=== PATIENT | female | born 1940 | race Hispanic/Latino ===

== ENCOUNTER 2019-01-29 11:46 | Emergency (ER) | payer OTHER, MEDICARE ==
[~2019-01-29 11:46] MED LIST: ATOR40TA71 PO; CLOP75TA32 PO; FERR324T10 PO; HYDR-2132 PO; INSLAN SQ; INSU100V SQ; LEVO50 PO; METO25TA6 PO; NITR0.4T SL; OMEP20TA25 PO
[2019-01-29] MEDS ORDERED: KETOROLAC TROMETHAMINE 30MG/ML ONE (12:15)
[2019-01-29] MEDS ORDERED: MORPHINE SULFATE 2 MG/ML 1ML SYG ONE (12:15)
[2019-01-29] MEDS ORDERED: ONDANSETRON HCL 4 MG/2 ML VIAL ONE (12:15)
== END 2019-01-29 14:22 | disposition home or self-care (01) ==
LOC: EDH 11:46
DX: S20.212A Contusion of left front wall of thorax, initial encounter (principal); I10 Essential (primary) hypertension; E11.9 Type 2 diabetes mellitus without complications; E78.00 Pure hypercholesterolemia, unspecified; W18.39XA Other fall on same level, initial encounter; Y93.89 Activity, other specified; Y92.89 Other specified places as the place of occurrence of the external cause; Y99.8 Other external cause status
CPT/HCPCS: 71250; 96374; 96375; 99284; J1885; J2405

== ENCOUNTER 2019-02-21 16:30 | Inpatient (IN) | payer OTHER, MEDICARE ==
[2019-02-21] VITALS (22 sets, daily range): BP systolic 115–176; BP diastolic 41–75
[~2019-02-21] VITALS: Ht 165.1 cm; Wt 78.3 kg
[2019-02-21] MEDS ORDERED: DIGOXIN 250 MCG/ML 2ML AMP ONE (16:46)
[2019-02-21] MEDS ORDERED: ASPIRIN 325 MG TABLET ONE (16:52)
[2019-02-21] MEDS ORDERED: METOPROLOL TARTRATE 1 MG/ML 5ML VIAL IV ONE ×5 (16:57→17:41)
[2019-02-21 16:59] LABS: BASOPHILS % (AUTO) 0.4 % (0.0-5.0); EOSINOPHILS % (AUTO) 1.9 % (0.0-8.0); HEMATOCRIT 37.9 % (36-48); LYMPHOCYTES % (AUTO) 28.1 % (21.0-51.0); MEAN CORPUSCULAR HEMOGLOBIN 30.4 pg (27.0-33.0); MEAN CORPUSCULAR HGB CONC 33.6 g/dL (32.0-36.0); MEAN CORPUSCULAR VOLUME 90.3 fL (79-99); MONOCYTES % (AUTO) 8.4 % (3.0-13.0); NEUTROPHILS % (AUTO) 61.2 % (40.0-77.0); PLATELET COUNT (AUTO) 167 K/uL (130-400); RED BLOOD CELL COUNT(AUTO) 4.19 MIL/uL (4.00-5.50); RED CELL DISTRIBUTION WIDTH 14.5 % (11.0-15.5); WHITE BLOOD COUNT (AUTO) 6.1 K/uL (4.8-10.8)
[2019-02-21] MEDS ORDERED: SODIUM BICARB 50MEQ 50ML VIAL ONE (17:10)
[2019-02-21] MEDS ORDERED: IOHEXOL 350 MG/ML 100ML INFUS..BTL IV ONE (17:10)
[2019-02-21] MEDS ORDERED: IOHEXOL-350 50ML VIAL IV ONE (17:10)
[2019-02-21] MEDS ORDERED: NITROGLYCERIN 5 MG/ML 10 ML VIAL IV ONE (17:10)
[2019-02-21] MEDS ORDERED: LIDOCAINE HCL 2% 20ML ONE (17:10)
[2019-02-21] MEDS ORDERED: HEPARIN SODIUM 1000UNIT/ML 10ML VIAL ONE (17:10)
[2019-02-21 17:13] LABS: INR 0.94 (0.85-1.15); PROTHROMBIN TIME 9.9 SEC (9.6-11.6)
[2019-02-21 17:15] LABS: CREATININE 1.1 mg/dL (0.5-1.5); POTASSIUM 3.6 mmol/L (3.5-5.1)
[2019-02-21 17:21] LABS: ALBUMIN 3.4 g/dL (3.5-5.0); TOTAL PROTEIN, SERUM 7.1 g/dL (6.0-8.3)
[2019-02-21 17:42] LABS: BILIRUBIN,TOTAL 0.2 mg/dL (0.2-1.0)
[2019-02-21] MEDS ORDERED: ATROPINE SULFATE 0.1 MG/ML 10 ML SYG IVP ONE ×2 (17:56→18:02)
[2019-02-21] MEDS ORDERED: HEPARIN 25000 UNITS/250 ML D5W 250 ML IV ONE (18:45)
[2019-02-21] MEDS ORDERED: SODIUM CHLORIDE 0.9% 1000ML 1,000 ML IV SCH (18:48)
[2019-02-21] MEDS ORDERED: DILTIAZEM 125MG+100 ML NS 125 ML IV PRN (19:00)
[2019-02-21] MEDS ORDERED: GLUCAGON 1MG KIT 1 MG ML IM PRN (19:00)
[2019-02-21] MEDS ORDERED: ALPRAZOLAM 0.5 MG TABLET PO PRN (19:00)
[2019-02-21] MEDS ORDERED: AMIODARONE HCL 150 MG in DEXTROSE 5%-WATER 100 ML IV SCH (19:00)
[2019-02-21] MEDS ORDERED: NOREPINEPHRINE 4MG/NS 250ML 250 ML IV PRN (19:00)
[2019-02-21] MEDS ORDERED: PHARMACY COMMUNICATION MISC SCH ×2 (19:00)
[2019-02-21] MEDS ORDERED: DEXTROSE 50%-WATER 50 ML DISP.SYRIN IV PRN (19:00)
[2019-02-21] MEDS ORDERED: AMIODARONE HCL 300 MG in DEXTROSE 5%-WATER 100 ML IV SCH (19:45)
[2019-02-21] MEDS: METOPROLOL TARTRATE 25 MG TAB PO SCH (20:40)
--- NOTE | 2019-02-21 20:41 | NUR ---
CONSULT REPEAT CHIEF FOR [facility] CALLED AND NOTIFIED OF NEW CONSULT. UPDATED ON PATIENT CONDITION. SPOKE WITH CARRIE HARRIS NP. NO NEW ORDERS.
[2019-02-21] MEDS: NITROGLYCERIN 50 MG/D5% WATER 1 BOT IV PRN (20:48)
[2019-02-21] MEDS: HEPARIN 25000 UNITS/250 ML D5W 250 ML IV SCH (20:58)
[2019-02-21] MEDS: ATORVASTATIN CALCIUM 40 MG TABLET PO SCH (20:59)
[2019-02-21] MEDS: AMIODARONE HCL 200 MG TABLET PO SCH (20:59)
[2019-02-21] MEDS: INSULIN HUMULIN R 100 UNIT/ML 3ML SQ SCH (21:00)
[2019-02-21] MEDS: AMIODARONE HCL 700 MG in DEXTROSE 5%-WATER 500 ML IV SCH (21:26)
[2019-02-21 22:12] LABS: TROPONIN I 10.7 ng/mL (0.00-0.06)
--- NOTE | 2019-02-21 22:43 | NUR ---
STATUS DR DARLING CALLED TO CHECK PATIENT STATUS. UPDATED ON PATIENT CONDITION. CURRENT VITALS SIGNS, BRADYCARDIA AND DRIP RATES. ORDER TO USE ATROPINE IF NEEDED FOR HEART RATE LESS THAN 40
[2019-02-21] MEDS ORDERED: ATROPINE SULFATE 0.1 MG/ML 10 ML SYG IVP PRN (22:45)
[2019-02-22] VITALS (60 sets, daily range): BP systolic 96–182; BP diastolic 36–78
[2019-02-22 01:44] LABS: INR 1.06 (0.85-1.15); PROTHROMBIN TIME 11.1 SEC (9.6-11.6)
[2019-02-22 02:32] LABS: BASOPHILS % (AUTO) 0.6 % (0.0-5.0); EOSINOPHILS % (AUTO) 1.4 % (0.0-8.0); HEMATOCRIT 36.3 % (36-48); LYMPHOCYTES % (AUTO) 24.6 % (21.0-51.0); MEAN CORPUSCULAR HEMOGLOBIN 30.3 pg (27.0-33.0); MEAN CORPUSCULAR HGB CONC 33.4 g/dL (32.0-36.0); MEAN CORPUSCULAR VOLUME 90.9 fL (79-99); MONOCYTES % (AUTO) 7.8 % (3.0-13.0); NEUTROPHILS % (AUTO) 65.6 % (40.0-77.0); NUCLEATED RED BLOOD CELLS 0.1 % (0.0-0.19); PLATELET COUNT (AUTO) 167 K/uL (130-400); RED BLOOD CELL COUNT(AUTO) 3.99 MIL/uL (4.00-5.50); RED CELL DISTRIBUTION WIDTH 14.5 % (11.0-15.5); WHITE BLOOD COUNT (AUTO) 6.7 K/uL (4.8-10.8)
[2019-02-22 03:02] LABS: CREATININE 0.9 mg/dL (0.5-1.5); POTASSIUM 4.6 mmol/L (3.5-5.1)
[2019-02-22 03:03] LABS: PARTIAL THROMBOPLASTIN TIME > 120.0 SEC (26.3-35.5)
[2019-02-22 03:09] LABS: TROPONIN I 26.36 ng/mL (0.00-0.06)
[2019-02-22] MEDS: ONDANSETRON HCL 4 MG/2 ML VIAL IVP PRN (04:52)
[2019-02-22] MEDS: MORPHINE SULFATE 2 MG/ML 1ML SYG IV PRN ×2 (04:53→19:13)
[2019-02-22] MEDS: LEVOTHYROXINE 50 MCG TABLET PO SCH (05:34)
[2019-02-22] MEDS: INSULIN HUMULIN R 100 UNIT/ML 3ML SQ SCH ×4 (06:27→20:49)
[2019-02-22 08:14] LABS: INR 1.06 (0.85-1.15); PROTHROMBIN TIME 11.1 SEC (9.6-11.6)
[2019-02-22 08:42] LABS: PARTIAL THROMBOPLASTIN TIME > 120.0 SEC (26.3-35.5)
[2019-02-22] MEDS ORDERED: METO25TA6 PO (08:50)
[2019-02-22] MEDS ORDERED: ACET-66 PO (08:50)
[2019-02-22] MEDS ORDERED: DICL2100G TP (08:50)
[2019-02-22] MEDS ORDERED: INSU100V SQ (08:50)
[2019-02-22] MEDS ORDERED: INSLAN SQ (08:50)
[2019-02-22] MEDS ORDERED: EZET10TA48 PO (08:50)
[2019-02-22] MEDS ORDERED: LEVE750T4 PO (08:50)
[2019-02-22] MEDS ORDERED: DONE5TAB33 PO (08:50)
[2019-02-22] MEDS ORDERED: DULA0.75 SQ (08:50)
[2019-02-22] MEDS ORDERED: FAMO-136 PO (08:50)
[2019-02-22] MEDS: PANTOPRAZOLE SODIUM 40 MG TABLET.DR PO SCH (08:52)
[2019-02-22] MEDS: ASPIRIN 81 MG EC TAB PO SCH (08:52)
[2019-02-22] MEDS: AMIODARONE HCL 200 MG TABLET PO SCH (08:52)
[2019-02-22] MEDS: METOPROLOL TARTRATE 25 MG TAB PO SCH (09:00)
[2019-02-22] MEDS ORDERED: CLOPIDOGREL BISULFATE 75 MG TAB PO SCH (09:00)
[2019-02-22] MEDS ORDERED: POTASSIUM CHLORIDE 10% ELIXIR 20 MEQ/15 ML UDCUP PO PRN (09:45)
[2019-02-22] MEDS ORDERED: LIDOCAINE HCL-MPF 1% 2ML VIAL IV PRN (09:45)
[2019-02-22] MEDS ORDERED: POTASSIUM CHLORIDE 20MEQ/100ML 100 ML IV PRN (09:45)
[2019-02-22] MEDS ORDERED: POTASSIUM CHLORIDE 20 MEQ ERTAB PO PRN (09:45)
--- NOTE | 2019-02-22 10:15 | NUR ---
MD VISIT Dr. Kumar in to see pt, update given, new orders received and will carry out. Call made to Dr. Alexis by Dr. Kumar, report exchanged.
--- NOTE | 2019-02-22 13:23 | NUR ---
DC PLAN VISITED WITH PATIENT. PATIENT LIVES WITH SPOUSE. INDEPENDENT ABLE TO PERFORM ADL'S. PATIENT HAS NO SERVICES. USES A WALKER FEELS SAFE TO RETURN HOME. RECENTLY MOVED TO NEW HOME GETTING SETTLED. Addendum: 02/22/19 at 1326 by ANIKA GARNETT RN CM Amended: Links added.
--- NOTE | 2019-02-22 14:32 | NUR ---
Claudia Guzman made rounds patient see at bedside. Dr. Guzman made aware of plan of care from cardiology team.
[2019-02-22] MEDS: HEPARIN 25000 UNITS/250 ML D5W 250 ML IV SCH (17:26)
--- NOTE | 2019-02-22 18:01 | NUR ---
MD NOTIFICATION Call made to Dr. Sanders, update given on status. Plan of care discussed.
[2019-02-22] MEDS: AMIODARONE HCL 700 MG in DEXTROSE 5%-WATER 500 ML IV SCH (20:45)
[2019-02-22] MEDS: ATORVASTATIN CALCIUM 40 MG TABLET PO SCH (21:09)
[2019-02-22] MEDS: LEVETIRACETAM 250 MG TABLET PO SCH (21:09)
[2019-02-23] VITALS (43 sets, daily range): BP systolic 101–161; BP diastolic 38–79
[2019-02-23] MEDS: ONDANSETRON HCL 4 MG/2 ML VIAL IVP PRN (02:49)
[2019-02-23] MEDS: MORPHINE SULFATE 2 MG/ML 1ML SYG IV PRN ×2 (02:50→10:52)
[2019-02-23 04:12] LABS: HEMATOCRIT 31.2 % (36-48); MEAN CORPUSCULAR HEMOGLOBIN 30.2 pg (27.0-33.0); MEAN CORPUSCULAR HGB CONC 33.6 g/dL (32.0-36.0); MEAN CORPUSCULAR VOLUME 89.7 fL (79-99); PLATELET COUNT (AUTO) 162 K/uL (130-400); RED BLOOD CELL COUNT(AUTO) 3.48 MIL/uL (4.00-5.50); WHITE BLOOD COUNT (AUTO) 7.9 K/uL (4.8-10.8)
[2019-02-23 04:31] LABS: CREATININE 1.1 mg/dL (0.5-1.5); MAGNESIUM 1.7 mg/dL (1.80-2.40); PHOSPHORUS 3.9 mg/dL (2.5-4.9); POTASSIUM 4.3 mmol/L (3.5-5.1)
[2019-02-23] MEDS: LEVOTHYROXINE 50 MCG TABLET PO SCH (05:53)
--- NOTE | 2019-02-23 06:08 | NUR ---
INSULIN FSBS 229. SLIDING SCALE CALLS FOR 8 UNITS. PATIENT REQUEST HALF DOSE SINCE WILL BE NPO THIS AM.
[2019-02-23] MEDS: PANTOPRAZOLE SODIUM 40 MG TABLET.DR PO SCH (06:31)
[2019-02-23] MEDS: INSULIN HUMULIN R 100 UNIT/ML 3ML SQ SCH ×4 (06:33→20:54)
--- NOTE | 2019-02-23 07:18 | NUR ---
STATUS KIYA PA ROUNDED UPDATED ON PATIENT CONDITION. ORDERS TO REMOVE SHEATH
[2019-02-23] MEDS ORDERED: INSULIN GLARGINE 100 UNITS/ML 10 ML VIAL SQ SCH (07:45)
[2019-02-23] MEDS: ASPIRIN 81 MG EC TAB PO SCH (08:16)
[2019-02-23] MEDS: EZETIMIBE 10 MG TAB PO SCH (08:16)
[2019-02-23] MEDS: AMIODARONE HCL 200 MG TABLET PO SCH (08:16)
[2019-02-23] MEDS: LEVETIRACETAM 250 MG TABLET PO SCH ×2 (09:04→20:54)
--- NOTE | 2019-02-23 11:10 | NUR ---
SHEATH PULLED PER PROTOCOL PTT CHECKED AND IS NOW 40. EXPLAINED SHEATH REMOVAL PROCEDURE TO PATIENT. BLOOD ASPIRATED FROM LINE, SUTURE REMOVED, DSTAT READY. PATIENT ASKED TO TAKE DEEP BREATH, SHEATH PULLED IN ONE FRANCISCO MOTION, DSTAT AND 4X4 UTILIZED TO HOLD PRESSURE. PRESSURE HELD FOR 15 MINUTES WITHOUT INTERRUPTION. HEMOSTASIS ACHIEVED. PRESSURE DRESSING PLACED TO ENSURE HEMOSTASIS AND PATIENT INFORMED TO REMAIN ON BEDREST FOR 4 HOURS.
[2019-02-23] MEDS ORDERED: CLOPIDOGREL BISULFATE 75 MG TAB PO SCH (13:28)
--- NOTE | 2019-02-23 15:00 | NUR ---
PATIENT CHOOSES TO HAVE SURGERY AFTER DISCUSSION WITH DR LINDA, THEN THINKING IT OVER AND DISCUSSING IT WITH DAUGHTER, , AND MYSELF. PATIENT HAS DECIDED THAT SHE WANTS TO ATTEMPT THE LEAH TO LAD CABG. DR LINDA NOTIFIED OF PATIENT'S DECISION
[2019-02-23] MEDS: ATORVASTATIN CALCIUM 40 MG TABLET PO SCH (20:54)
[2019-02-24] VITALS (16 sets, daily range): BP systolic 107–166; BP diastolic 36–92
[2019-02-24 03:54] LABS: BASOPHILS % (AUTO) 0.4 % (0.0-5.0); EOSINOPHILS % (AUTO) 1.6 % (0.0-8.0); LYMPHOCYTES % (AUTO) 23.7 % (21.0-51.0); MEAN CORPUSCULAR HEMOGLOBIN 30.9 pg (27.0-33.0); MEAN CORPUSCULAR HGB CONC 34.2 g/dL (32.0-36.0); MEAN CORPUSCULAR VOLUME 90.3 fL (79-99); MONOCYTES % (AUTO) 11.6 % (3.0-13.0); NEUTROPHILS % (AUTO) 62.7 % (40.0-77.0); NUCLEATED RED BLOOD CELLS 0.1 % (0.0-0.19); PLATELET COUNT (AUTO) 131 K/uL (130-400); RED BLOOD CELL COUNT(AUTO) 3.43 MIL/uL (4.00-5.50); WHITE BLOOD COUNT (AUTO) 5.8 K/uL (4.8-10.8)
[2019-02-24] MEDS: INSULIN HUMULIN R 100 UNIT/ML 3ML SQ SCH ×4 (05:51→20:53)
[2019-02-24] MEDS: LEVOTHYROXINE 50 MCG TABLET PO SCH (05:56)
[2019-02-24] MEDS: PANTOPRAZOLE SODIUM 40 MG TABLET.DR PO SCH (05:56)
[2019-02-24] MEDS: NITROGLYCERIN 50 MG/D5% WATER 1 BOT IV PRN (06:09)
[2019-02-24] MEDS ORDERED: INSULIN GLARGINE 100 UNITS/ML 10 ML VIAL SQ SCH (08:00)
[2019-02-24] MEDS: EZETIMIBE 10 MG TAB PO SCH (09:24)
[2019-02-24] MEDS: LEVETIRACETAM 250 MG TABLET PO SCH ×2 (09:24→20:50)
[2019-02-24] MEDS: AMIODARONE HCL 200 MG TABLET PO SCH (09:24)
[2019-02-24] MEDS: ASPIRIN 81 MG EC TAB PO SCH (09:28)
[2019-02-24] MEDS: CLOPIDOGREL BISULFATE 75 MG TAB PO SCH (11:08)
--- NOTE | 2019-02-24 20:00 | NUR ---
PM NOTE PATIENT RESTING IN BED, ALERT & ORIENTED X3. FAMILY AT BEDSIDE. PATIENT DENIES PAIN AT THIS TIME, NO DISTRESS NOTED. PATIENT ON ROOM AIR, UP WITH ASSISTANCE. ON TELEMETRY PATIENT IS SINUS RHYTHM AT 69. CALL LIGHT WITHIN REACH. INSTRUCTED TO CALL FOR ASSISTANCE. VERBALIZED UNDERSTANDING.
[2019-02-24] MEDS: ATORVASTATIN CALCIUM 40 MG TABLET PO SCH (20:49)
[2019-02-25 04:08] VITALS: BP 158/57
[2019-02-25 04:29] LABS: MEAN CORPUSCULAR HEMOGLOBIN 30.3 pg (27.0-33.0); MEAN CORPUSCULAR HGB CONC 33.4 g/dL (32.0-36.0); MEAN CORPUSCULAR VOLUME 90.5 fL (79-99); NUCLEATED RED BLOOD CELLS 0.1 % (0.0-0.19); PLATELET COUNT (AUTO) 146 K/uL (130-400); RED BLOOD CELL COUNT(AUTO) 3.76 MIL/uL (4.00-5.50); RED CELL DISTRIBUTION WIDTH 14.3 % (11.0-15.5); WHITE BLOOD COUNT (AUTO) 4.6 K/uL (4.8-10.8)
[2019-02-25 04:44] LABS: CREATININE 1.1 mg/dL (0.5-1.5); POTASSIUM 3.7 mmol/L (3.5-5.1)
[2019-02-25] MEDS: LEVOTHYROXINE 50 MCG TABLET PO SCH (06:20)
[2019-02-25] MEDS: PANTOPRAZOLE SODIUM 40 MG TABLET.DR PO SCH (06:20)
[2019-02-25] MEDS: INSULIN HUMULIN R 100 UNIT/ML 3ML SQ SCH ×2 (06:22→11:56)
[2019-02-25 07:43] VITALS: BP 138/55
[2019-02-25] MEDS ORDERED: METO25 PO (07:43)
[2019-02-25] MEDS ORDERED: AMIO200T44 PO (07:43)
[2019-02-25] MEDS ORDERED: AEC81 PO (07:43)
[2019-02-25] MEDS ORDERED: INSULIN GLARGINE 100 UNITS/ML 10 ML VIAL SQ SCH ×2 (08:00→09:00)
[2019-02-25] MEDS: AMLODIPINE BESYLATE 5 MG TAB PO SCH ×2 (08:00→08:54)
[2019-02-25] MEDS: EZETIMIBE 10 MG TAB PO SCH (08:48)
[2019-02-25] MEDS: CLOPIDOGREL BISULFATE 75 MG TAB PO SCH (08:48)
[2019-02-25] MEDS: AMIODARONE HCL 200 MG TABLET PO SCH (08:48)
[2019-02-25] MEDS: ASPIRIN 81 MG EC TAB PO SCH (08:48)
[2019-02-25] MEDS: LEVETIRACETAM 250 MG TABLET PO SCH (08:49)
[2019-02-25 11:42] VITALS: BP 122/41
== END 2019-02-25 13:07 | disposition home or self-care (01) | DRG 252 ==
LOC: EDH 16:30 → 2CH 19:18 → 2AH 02-24 15:47
PROVIDERS: ADMIT Internal Medicine; ATTEND Internal Medicine
PROC: B2121ZZ Fluoroscopy of Single Coronary Artery Bypass Graft using Low Osmolar Contrast (ICD-10-PCS; principal; 2019-02-21)
PROC: B2181ZZ Fluoroscopy of Left Internal Mammary Bypass Graft using Low Osmolar Contrast (ICD-10-PCS; 2019-02-21)
PROC: 03743DZ Dilation of Left Subclavian Artery with Intraluminal Device, Percutaneous Approach (ICD-10-PCS; 2019-02-21)
PROC: 4A023N7 Measurement of Cardiac Sampling and Pressure, Left Heart, Percutaneous Approach (ICD-10-PCS; 2019-02-21)
PROC: B2111ZZ Fluoroscopy of Multiple Coronary Arteries using Low Osmolar Contrast (ICD-10-PCS; 2019-02-21)
PROC: B2151ZZ Fluoroscopy of Left Heart using Low Osmolar Contrast (ICD-10-PCS; 2019-02-21)
PROC: B3121ZZ Fluoroscopy of Left Subclavian Artery using Low Osmolar Contrast (ICD-10-PCS; 2019-02-21)
DX: T82.858A Stenosis of other vascular prosthetic devices, implants and grafts, initial encounter (principal); I21.4 Non-ST elevation (NSTEMI) myocardial infarction; G99.2 Myelopathy in diseases classified elsewhere; I25.110 Atherosclerotic heart disease of native coronary artery with unstable angina pectoris; I48.0 Paroxysmal atrial fibrillation; Z95.1 Presence of aortocoronary bypass graft; E11.22 Type 2 diabetes mellitus with diabetic chronic kidney disease; E04.2 Nontoxic multinodular goiter; E11.51 Type 2 diabetes mellitus with diabetic peripheral angiopathy without gangrene; E11.43 Type 2 diabetes mellitus with diabetic autonomic (poly)neuropathy; E11.65 Type 2 diabetes mellitus with hyperglycemia; F01.50 Vascular dementia, unspecified severity, without behavioral disturbance, psychotic disturbance, mood disturbance, and anxiety; G25.81 Restless legs syndrome; G40.409 Other generalized epilepsy and epileptic syndromes, not intractable, without status epilepticus; I13.10 Hypertensive heart and chronic kidney disease without heart failure, with stage 1 through stage 4 chronic kidney disease, or unspecified chronic kidney disease; I70.8 Atherosclerosis of other arteries; I95.1 Orthostatic hypotension; K21.9 Gastro-esophageal reflux disease without esophagitis; M79.7 Fibromyalgia; N39.46 Mixed incontinence; E78.2 Mixed hyperlipidemia; M48.061 Spinal stenosis, lumbar region without neurogenic claudication; Y83.8 Other surgical procedures as the cause of abnormal reaction of the patient, or of later complication, without mention of misadventure at the time of the procedure; N18.3 Chronic kidney disease, stage 3 (moderate); Z90.49 Acquired absence of other specified parts of digestive tract; Z87.19 Personal history of other diseases of the digestive system; Z86.73 Personal history of transient ischemic attack (TIA), and cerebral infarction without residual deficits; Z83.3 Family history of diabetes mellitus; Z82.49 Family history of ischemic heart disease and other diseases of the circulatory system; Z82.3 Family history of stroke; Z79.899 Other long term (current) drug therapy; Z79.82 Long term (current) use of aspirin; Z79.4 Long term (current) use of insulin; Z79.02 Long term (current) use of antithrombotics/antiplatelets
CPT/HCPCS: 36215; 36415; 37236; 71045; 75710; 80048; 80053; 80162; 82550; 82948; 83735; 83874; 84100; 84484; 85025; 85027; 85610; 85730; 93005; 93306; 93459; C1769; C1893; C1894; G0378; J0282; J0461; J1160; J1644; J1815; J2405; J3490; J7060; Q9967

== ENCOUNTER → 2020-07-23 | Outpatient (CLI) | payer OTHER, MEDICARE ==
[~2020-07-23] MED LIST changes: +ACET-66 PO; +AEC81 PO; +AMIO200T44 PO; +DICL2100G TP; +DONE5TAB33 PO; +DULA0.75 SQ; +EZET10TA48 PO; +FAMO-136 PO; -FERR324T10 PO; -HYDR-2132 PO; +LEVE750T4 PO; +METO25 PO; -METO25TA6 PO; -OMEP20TA25 PO
== END | disposition home or self-care (01) ==
LOC: RAH 09:37
PROVIDERS: ATTEND Internal Medicine
DX: I08.1 Rheumatic disorders of both mitral and tricuspid valves (principal); R80.9 Proteinuria, unspecified; I10 Essential (primary) hypertension; E66.9 Obesity, unspecified; E78.5 Hyperlipidemia, unspecified; E11.9 Type 2 diabetes mellitus without complications; R55 Syncope and collapse; R29.898 Other symptoms and signs involving the musculoskeletal system; Z86.73 Personal history of transient ischemic attack (TIA), and cerebral infarction without residual deficits
CPT/HCPCS: 93306; 93356

== ENCOUNTER → 2020-10-28 | Outpatient (CLI) | payer OTHER, MEDICARE | END | disposition home or self-care (01) | LOC: SHCH 09:10 | PROVIDERS: ATTEND Internal Medicine Cardiovascular Disease | DX: I08.8 Other rheumatic multiple valve diseases (principal); I20.8 Other forms of angina pectoris; I25.10 Atherosclerotic heart disease of native coronary artery without angina pectoris | CPT/HCPCS: 93306; 93356 ==

== ENCOUNTER → 2020-11-15 | Outpatient (CLI) | payer OTHER, MEDICARE ==
[~2020-11-15] VITALS: Ht 165.1 cm; Wt 73.5 kg
[~2020-11-15] MED LIST changes: +REGADENOSON 0.4 MG/5 ML PF SYG IVP ONE; +REGADENOSON 0.4 MG/5 ML PF SYG IVP SCH
== END | disposition home or self-care (01) ==
LOC: SHCH 08:38
PROVIDERS: ATTEND Internal Medicine Cardiovascular Disease
DX: I25.89 Other forms of chronic ischemic heart disease (principal); I25.10 Atherosclerotic heart disease of native coronary artery without angina pectoris; Z98.61 Coronary angioplasty status
CPT/HCPCS: 78452; 93017; 96374; A9500 ×2; J2785

== ENCOUNTER 2020-12-19 06:10 | Day surgery (SDC) | payer OTHER, MEDICARE ==
[2020-12-17 09:51] LABS: BASOPHILS % (AUTO) 0.7 % (0.0-5.0); EOSINOPHILS % (AUTO) 3.1 % (0.0-8.0); HEMATOCRIT 43.5 % (36-48); LYMPHOCYTES % (AUTO) 24.7 % (21.0-51.0); MEAN CORPUSCULAR HEMOGLOBIN 29.5 pg (27.0-33.0); MEAN CORPUSCULAR HGB CONC 31.3 g/dL (32.0-36.0); MEAN CORPUSCULAR VOLUME 94.4 fL (79-99); MONOCYTES % (AUTO) 9.3 % (3.0-13.0); PLATELET COUNT (AUTO) 171 K/uL (130-400); RED BLOOD CELL COUNT(AUTO) 4.61 MIL/uL (4.00-5.50); RED CELL DISTRIBUTION WIDTH 14.4 % (11.0-15.5); WHITE BLOOD COUNT (AUTO) 5.9 K/uL (4.8-10.8)
[2020-12-17 10:03] LABS: CREATININE 1.2 mg/dL (0.5-1.5); POTASSIUM 4.7 mmol/L (3.5-5.1)
[2020-12-17 10:06] LABS: INR 1.08 (0.85-1.15); PROTHROMBIN TIME 11.7 SEC (9.6-11.6)
[2020-12-17 10:07] LABS: PARTIAL THROMBOPLASTIN TIME 26.8 SEC (26.3-35.5)
[2020-12-17 10:20] LABS: APPEARANCE,URINE Clear (CLEAR); BILIRUBIN,URINE Negative (NEGATIVE); COLOR,URINE Yellow (YELLOW); GLUCOSE, URINE (UA) Negative (NEGATIVE); KETONES,URINE Negative (NEGATIVE); LEUKOCYTE ESTERASE ,URINE Negative (NEGATIVE); NITRATE,URINE Negative (NEGATIVE); OCCULT BLOOD,URINE Negative (NEGATIVE); PH,URINE 6.5 (5.0-8.0); PROTEIN,URINE Negative (NEGATIVE); UROBILINOGEN,URINE 0.2 mg/dL (0.2-1.0)
[2020-12-18 09:10] VITALS: BP 175/73
[2020-12-19] VITALS (8 sets, daily range): BP systolic 101–169; BP diastolic 45–61
[~2020-12-19] VITALS: Ht 162.6 cm; Wt 82.6 kg
[~2020-12-19 06:10] MED LIST changes: +0.9% NACL 500ML IV.SOLN 500 ML IV SCH; -ACET-66 PO; -AMIO200T44 PO; -ATOR40TA71 PO; +CARV3.12 PO; -DICL2100G TP; -DONE5TAB33 PO; -EZET10TA48 PO; -FAMO-136 PO; +FURO40TA5 PO; -LEVE750T4 PO; -LEVO50 PO; +LEVO88TA7 PO; -METO25 PO; -NITR0.4T SL; +PREVAGEN PO; -REGADENOSON 0.4 MG/5 ML PF SYG IVP ONE; -REGADENOSON 0.4 MG/5 ML PF SYG IVP SCH
[2020-12-19] MEDS ORDERED: 0.9%NACL 1000ML 1,000 ML IV ONE (08:03)
[2020-12-19] MEDS ORDERED: IOHEXOL 350 MG/ML 100ML INFUS..BTL IV ONE (08:27)
[2020-12-19] MEDS ORDERED: HEPARIN 10,000 UNIT/10ML (1,000 UNIT/ML) VIAL ONE (08:27)
[2020-12-19] MEDS ORDERED: NITROGLYCERIN 2 MG VIAL IV ONE (08:27)
[2020-12-19] MEDS ORDERED: IOHEXOL-350 50ML VIAL IV ONE ×2 (08:27→09:11)
[2020-12-19] MEDS ORDERED: MIDAZOLAM HCL 1 MG/ML 2ML VIAL ONE (08:28)
[2020-12-19] MEDS ORDERED: LIDOCAINE HCL 400MG/20ML VIAL ONE ×2 (08:28→09:06)
[2020-12-19] MEDS ORDERED: HYDRALAZINE 20MG/ML VIAL ONE (09:36)
[2020-12-19] MEDS ORDERED: DEXTROSE 50%-WATER 50 ML DISP.SYRIN IV PRN (10:00)
[2020-12-19] MEDS ORDERED: GLUCAGON 1MG KIT 1 MG ML IM PRN (10:00)
== END 2020-12-19 13:35 | disposition home or self-care (01) ==
LOC: DAH 06:10
PROVIDERS: ATTEND Internal Medicine Cardiovascular Disease
DX: I25.119 Atherosclerotic heart disease of native coronary artery with unspecified angina pectoris (principal); E11.22 Type 2 diabetes mellitus with diabetic chronic kidney disease; I25.82 Chronic total occlusion of coronary artery; I12.9 Hypertensive chronic kidney disease with stage 1 through stage 4 chronic kidney disease, or unspecified chronic kidney disease; N18.31 Chronic kidney disease, stage 3a; E78.5 Hyperlipidemia, unspecified; E03.9 Hypothyroidism, unspecified; I65.23 Occlusion and stenosis of bilateral carotid arteries; Z82.49 Family history of ischemic heart disease and other diseases of the circulatory system; Z79.01 Long term (current) use of anticoagulants; Z79.899 Other long term (current) drug therapy; Z79.4 Long term (current) use of insulin; Z79.82 Long term (current) use of aspirin; Z95.1 Presence of aortocoronary bypass graft; Z98.890 Other specified postprocedural states; Z79.890 Hormone replacement therapy
CPT/HCPCS: 36215; 36415; 71045; 75710; 80048; 81003; 82948 ×2; 85025; 85610; 85730; 93005; 93455; A4215 ×2; A4216; A4221; A4222; A4223 ×3; A4606; A4663; A6260; C1769; C1894; J0360; J1644 ×2; J3490 ×2; J7030; Q9965; Q9967 ×2; J2250

== ENCOUNTER → 2022-02-02 | Outpatient (CLI) | payer OTHER, MEDICARE ==
[~2022-02-02] MED LIST changes: -0.9% NACL 500ML IV.SOLN 500 ML IV SCH; +LIDOCAINE HCL 4% LTA SOL 4 ML VIAL TP ONE
== END | disposition home or self-care (01) ==
LOC: WHH 09:31
PROVIDERS: ATTEND Family Medicine
DX: S70.362A Insect bite (nonvenomous), left thigh, initial encounter (principal); E11.622 Type 2 diabetes mellitus with other skin ulcer; L97.122 Non-pressure chronic ulcer of left thigh with fat layer exposed; E11.22 Type 2 diabetes mellitus with diabetic chronic kidney disease; I12.9 Hypertensive chronic kidney disease with stage 1 through stage 4 chronic kidney disease, or unspecified chronic kidney disease; N18.30 Chronic kidney disease, stage 3 unspecified; E78.5 Hyperlipidemia, unspecified; E03.9 Hypothyroidism, unspecified; J45.909 Unspecified asthma, uncomplicated; I48.91 Unspecified atrial fibrillation; I25.10 Atherosclerotic heart disease of native coronary artery without angina pectoris; K21.9 Gastro-esophageal reflux disease without esophagitis; E66.9 Obesity, unspecified; F03.90 Unspecified dementia, unspecified severity, without behavioral disturbance, psychotic disturbance, mood disturbance, and anxiety; Z68.23 Body mass index [BMI] 23.0-23.9, adult; Z79.899 Other long term (current) drug therapy; Z95.1 Presence of aortocoronary bypass graft; W57.XXXA Bitten or stung by nonvenomous insect and other nonvenomous arthropods, initial encounter; Y93.89 Activity, other specified; Y92.89 Other specified places as the place of occurrence of the external cause; Y99.8 Other external cause status
CPT/HCPCS: 11042; A6248; A6260